=== PATIENT | male | born 1990 | race Caucasian/White ===

== ENCOUNTER 2018-03-19 00:01 | Emergency (ER) | payer SELFPAY ==
[~2018-03-19] VITALS: Ht 182.9 cm; Wt 93.0 kg
[2018-03-19 00:54] LABS: Basophils # (auto) 0.1 uL; Basophils % (auto) 0.6 % (0.0-2.0); Eosinophils # (auto) 0.3 uL; Eosinophils % (auto) 2.4 % (0.0-7.0); Hematocrit 40.2 % (41.0-53.0); Hemoglobin 13.6 g/dL (13.5-17.5); Lymphocytes # (auto) 1.7 uL; Lymphocytes % (auto) 15.5 % (10.0-50.0); Mean Corpuscular Hemoglobin 32.6 pg (28.0-32.0); Mean Corpuscular Hgb Conc. 33.9 g/dL (32.0-36.0); Mean Corpuscular Volume 96.3 fL (80.0-100.0); Monocytes % (auto) 9.6 % (0.0-12.0); Neutrophils # (auto) 7.8 uL; Neutrophils % (auto) 71.9 % (37.0-80.0); Platelet Count (auto) 239 10^3/uL (140-450); Red Blood Cells 4.17 10^6/uL (4.5-5.90); Red Cell Distribution Width 12.5 % (11.8-14.3); White Blood Cell 10.8 10^3/uL (4.4-10.8)
[2018-03-19 01:14] LABS: BUN/Creatinine Ratio 19.8; Calcium 8.6 mg/dL (8.5-10.1); Potassium 3.9 mmol/L (3.5-5.1)
[2018-03-19 06:10] VITALS: BP 131/75
== END 2018-03-19 07:37 | disposition home or self-care (01) ==
LOC: ER 00:04
DX: N50.3 Cyst of epididymis (principal); N43.3 Hydrocele, unspecified
CPT/HCPCS: 36415; 76870; 80048; 85025

== ENCOUNTER 2024-10-08 09:27 | Inpatient (IN) | payer OTHER, MEDICAID ==
[~2024-10-08] VITALS: Ht 182.9 cm; Wt 97.7 kg
[2024-10-08] MEDS ORDERED: MORPHINE SULFATE INJ 2 MG/ml SYRG IV ONE (10:30)
[2024-10-08] MEDS: KETOROLAC TROMETH 30 MG/ML 1ML VIAL IV ONE (10:47)
[2024-10-08] MEDS: SODIUM CHLORIDE 0.9% 1,000 ML IV ONE (10:47)
[2024-10-08] MEDS: ONDANSETRON HCL 4 MG/2 ML VIAL IV ONE (10:47)
[2024-10-08 11:10] LABS: Basophils # (auto) 0 10 ^3/uL (0-0.2); Hemoglobin 15.5 g/dL (13.5-17.5); Mean Corpuscular Hgb Conc. 34.2 g/dL (32.0-36.0); Monocytes # (auto) 0.6 10 ^3/uL (0-1.3)
[2024-10-08 11:12] LABS: Basophils % (auto) 0.3 % (0.0-2.0); Eosinophils # (auto) 0.1 10 ^3/uL (0-0.8); Eosinophils % (auto) 1.5 % (0.0-7.0); Hematocrit 45.2 % (41.0-53.0); Lymphocytes % (auto) 10.5 % (10.0-50.0); Mean Corpuscular Hemoglobin 34.1 pg (28.0-32.0); Mean Corpuscular Volume 99.6 fL (80.0-100.0); Monocytes % (auto) 6.1 % (0.0-12.0); Neutrophils # (auto) 7.5 10 ^3/uL (1.6-8.6); Neutrophils % (auto) 81.6 % (37.0-80.0); Platelet Count (auto) 239 10^3/uL (140-450); Red Blood Cells 4.54 10^6/uL (4.5-5.90); Red Cell Distribution Width 14.6 % (11.8-14.3); White Blood Cell 9.2 10^3/uL (4.4-10.8)
[2024-10-08 11:27] LABS: Alanine Aminotransferase 12 U/L (7-40); Albumin 4.3 g/dL (3.2-4.8); Alkaline Phosphatase 88 U/L (46-116); Anion Gap 5 (5-15); Aspartate Aminotransferase 21 U/L (13-40); BUN/Creatinine Ratio 12.8 (10.0-20.0); Bilirubin, Total 0.7 mg/dL (0.2-1.0); Blood Urea Nitrogen 10 mg/dL (9-23); Calcium 9.6 mg/dL (8.7-10.4); Carbon Dioxide 27 mmol/L (20-31); Glucose 97 mg/dL (74-106); Potassium 3.6 mmol/L (3.5-5.1); Sodium 139 mmol/L (136-145); Total Protein 6.6 g/dL (5.7-8.2)
[2024-10-08 11:32] LABS: Chloride 107 mmol/L (98-107); Lipase 492 U/L (12-53)
--- NOTE | 2024-10-08 11:45 | ED.PDOC ---
GI ASSESSMENT HPI Comments 34y M who presents to the ED for chief complaint of abdominal pain. Pt states he has been having epigastric abdominal pain since 0200 this AM. Pt states he has been drinking heavily for the past 1 days and states he drinks 4-5x per week. Pt states the pain is sharp in nature, intermittent, with associated exacerbating factor of pain after drinking and no relieving factors. Pt has associated nausea, vomiting and diarrhea but denies any other symptoms. Pt states he has history of pancreatis due to his heavy drinking in the past and thinks its the same today. Pt has stable vitals in the ED. Pt otherwise denies any other symptoms at this time. Chief Complaint: Abdominal Pain Time Seen by MD: 11:41 Primary Care Provider: NONE Reviewed Notes: Nurses Notes Allergies: Coded Allergies: NO KNOWN ALLERGIES (Unverified , 03/19/18) Information Source: Patient Mode of Arrival: Ambulatory Brought in by: self Past Medical History PAST MEDICAL HISTORY: Denies Surgical History: Denies all surgeries Family History Family History: Unknown Social History Smoker: Non-Smoker Alcohol: Heavy Drugs: Denies Drug Use Lives In: Home Gastrointestinal: reports: abdominal pain, diarrhea, nausea, vomiting Physical Exam General Appearance: No Apparent Distress, Normal HEENT: Normal ENT Inspection, Pharynx Normal, TMs Normal Neck: Full Range of Motion, Non-Tender, Normal, Normal Inspection Respiratory: Chest Non-Tender, Lungs Clear, No Accessory Muscle Use, No Respiratory Distress, Normal Breath Sounds Cardiovascular: No Edema, No JVD, No Murmur, No Gallop, Normal Peripheral Pulses, Regular Rate/Rhythm Breast Exam: Deferred Gastrointestinal: Epigastric (tender to palpation, otherwise no rebound or guarding noted) Genitalia: Deferred Pelvic: Deferred Rectal: Deferred Extremities: No calf tenderness, Normal capillary refill, Normal inspection, Normal range of motion, Non-tender, No pedal edema Musculoskeletal : Apperance: Normal Neurologic: Alert, bus analyst II-XII nml as Tested, No Motor Deficits, Normal Affect, Normal Mood, No Sensory Deficits Cerebellar Function: Normal Reflexes: Normal Skin: Dry, Normal Color, Warm Lymphatic: No Adenopathy Was a procedure done? Was a procedure done?: No GI differential Dx Differential Diagnosis: Bowel Obstruction, Cholangitis, Cholecystitis, Constipation, Diverticular disease, Esophageal rupture, Esophagitis, Gastritis/PUD, Gastroenteritis, GI hemorrhage, Hernia, Hepatitis, Inflammatory BD, Ischemic Bowel, Pancreatitis, Urolithiasis, Dehydration, Diabetes/ DKA, Electrolyte Imbalance, Food Poisoning, Bacterial, Viral, Hypovolemia, Impaction, Malnutrition, Renal Failure, Ischemic Bowel, Mass, Kidney Stone, Other (pancreatic necrosis, pancreatic cyst/pseudocyst, abscess) X-Ray, Labs, Meds, VS Vital Signs Date Time Temp Pulse Resp B/P (MAP) Pulse Ox O2 Delivery O2 Flow Rate FiO2 10/08/24 12:51 66 18 100 Room Air 10/08/24 12:51 66 18 148/72 (97) 100 10/08/24 12:51 66 18 148/72 10/08/24 12:30 60 18 144/76 (98) 98 10/08/24 12:24 60 18 144/76 10/08/24 10:54 Room Air* 0 21 10/08/24 10:54 98.9 68 18 152/95 (114) 98 98.9 10/08/24 09:45 97.9 74 17 137/85 (102) 97 Lab Test 10/08/24 10:54 Range/Units White Blood Count 9.2 4.4-10.8 10^3/uL Red Blood Count 4.54 4.5-5.90 10^6/uL Hemoglobin 15.5 13.5-17.5 g/dL Hematocrit 45.2 41.0-53.0 % Mean Corpuscular Volume 99.6 80.0-100.0 fL Mean Corpuscular Hemoglobin 34.1 H 28.0-32.0 pg Mean Corpuscular Hemoglobin Concent 34.2 32.0-36.0 g/dL Red Cell Distribution Width 14.6 H 11.8-14.3 % Platelet Count 239 140-450 10^3/uL Mean Platelet Volume 7.6 6.9-10.8 fL Neutrophils (%) (Auto) 81.6 H 37.0-80.0 % Lymphocytes (%) (Auto) 10.5 10.0-50.0 % Monocytes (%) (Auto) 6.1 0.0-12.0 % Eosinophils (%) (Auto) 1.5 0.0-7.0 % Basophils (%) (Auto) 0.3 0.0-2.0 % Neutrophils # (Auto) 7.5 1.6-8.6 10 ^3/uL Lymphocytes # (Auto) 1.0 0.4-5.4 10 ^3/uL Monocytes # (Auto) 0.6 0-1.3 10 ^3/uL Eosinophils # (Auto) 0.1 0-0.8 10 ^3/uL Basophils # (Auto) 0 0-0.2 10 ^3/uL Nucleated Red Blood Cells 0.0 % Sodium Level 139 136-145 mmol/L Potassium Level 3.6 3.5-5.1 mmol/L Chloride Level 107 98-107 mmol/L Carbon Dioxide Level 27 20-31 mmol/L Anion Gap 5 5-15 Blood Urea Nitrogen 10 9-23 mg/dL Creatinine 0.78 0.700-1.30 mg/dL Glomerular Filtration Rate Calc 121 >90 mL/min BUN/Creatinine Ratio 12.8 10.0-20.0 Serum Glucose 97 74-106 mg/dL Calcium Level 9.6 8.7-10.4 mg/dL Total Bilirubin 0.7 0.2-1.0 mg/dL Aspartate Amino Transferase (AST) 21 13-40 U/L Alanine Aminotransferase (ALT) 12 7-40 U/L Alkaline Phosphatase 88 46-116 U/L Total Protein 6.6 5.7-8.2 g/dL Albumin 4.3 3.2-4.8 g/dL Lipase 492 H 12-53 U/L Current Medications Medications (Trade) Dose Ordered Sig/Prakash Route Start Time Stop Time Status Last Admin Sodium Chloride 1,000 ml @ 1,000 mls/hr Q1H ONCE IV 10/08/24 10:30 10/08/24 11:29 DC 10/08/24 10:47 Ondansetron HCl (Zofran) 4 mg ONCE ONCE IV 10/08/24 10:30 10/08/24 10:31 DC 10/08/24 10:47 Ketorolac Tromethamine (Toradol Injection) 15 mg ONCE ONCE IV 10/08/24 10:45 10/08/24 10:46 DC 10/08/24 10:47 Morphine Sulfate 2 mg ONCE ONCE IV 10/08/24 12:15 10/08/24 12:16 DC 10/08/24 12:24 Time of 1ST Reevaluation: 12:10 Reevaluation 1ST: Unchanged Time of 2ND Reevaluation: 15:08 Reevaluation 2ND: Unchanged Patient Education/Counseling: Diagnosis, Treatment Family Education/Counseling: No Family Present Additional Information - I reviewed the following notes from patient's past medical encounters:2 prior ER visits - The following tests were ordered, and results were reviewed by me: (Labs, X- Ray, EKG): CBC, CMP, lipase - Additional information was gathered from interviewing the following independent Historian: (Family, Other Providers, EMT) - I reviewed and agreed with the following test results read by other provider: ( CT) - I discussed treatments and results with medical personnel and: (consultants, family): Dr Ovalle from [facility], who authorized for admission here #[id number] pt continues to have fontaine. his CT shows significant pancreatic changes consistent with his pain. he will be admitted to have pain control and kept NPO Departure 1 Departure Time of Disposition: 15:10 Impression: Primary Impression: Acute pancreatitis Qualified Codes: K85.20 - Alcohol induced acute pancreatitis without necrosis or infection Disposition: 09 ADMITTED INPATIENT Admit to: Med Surg Condition: Stable Discharged With: Self Critical Care Note Critical Care Time?: Yes (45 min-critical care time only) Critical care comment: due to concerns for patient's condition deterioration, the care required my highest attention and readiness to intervene. i spoke to the family, patient, reviewed any records, ordered the appropriate tests and treatments, reviewed the results, response and communicated with medical personnel, formulated a plan of care. critical care time does not include any procedures Stability Stability form required: No Heart Score Heart Score: Heart Score Response (Comments) Value History N/A 0 EKG N/A 0 Age N/A 0 Risk Factors N/A 0 Troponin N/A 0 Total 0 I personally scribed for WILLIAM GUALLPA MD ([email or web address]) on 10/08/24 at 11:45. Electronically submitted by Marie Darby ([email or web address]). WILLIAM GUALLPA MD Oct 08, 2024 11:45
[2024-10-08] MEDS: MORPHINE SULFATE INJ 2 MG/ml SYRG IV ONE ×2 (12:24→19:21)
--- NOTE | 2024-10-08 13:13 | DVH ---
CT CT AB PEL WO CON-NO ORAL OR IV INDICATION: r/o pancreatic abscess EXAM DATE: 10/08/2024 12:48 PM COMPARISON: None RADIATION DOSE: CTDIvol: 17.73 mGy, DLP: 941.52 mGy*cm PROCEDURE: Helical CT images were obtained of the abdomen and pelvis without IV contrast Sagittal an d coronal reconstructions are provided. ORAL CONTRAST: None. ADDITIONAL IMAGES / REFORMATS: None All CT scans at this medical facility are performed using dose modulation techniques as appropriate t o a performed exam including the following: Automated exposure control was utilized; adjustment of th e MA and/or KV according to patient size; and use of iterative reconstruction technique. FINDINGS: LUNG BASE: Normal. LIVER: Normal. GALLBLADDER AND BILIARY TREE: No calcified gallstones. Normal caliber wall. No intra- or extrahepatic biliary ductal dilation. PANCREAS: Prominent peripancreatic edema/fat stranding, can be seen with acute pancreatitis. SPLEEN: Normal. BOWEL: Mild wall thickening and periduodenal edema/ fat stranding. Normal appendix. ADRENALS: Normal. KIDNEYS AND URETER: Normal. BLADDER: Normal. REPRODUCTIVE ORGANS: Normal. LYMPH NODES:No lymphadenopathy. PERITONEUM: No ascites or free air. No other fluid collection. VESSELS: Scattered atherosclerotic calcifications are noted. RETROPERITONEUM: Normal. ABDOMINAL WALL: Normal. BONES: Scattered osseous degenerative changes are noted. IMPRESSION: Prominent peripancreatic edema/fat stranding, can be seen with acute pancreatitis. However, no focal fluid collection is seen. Mild wall thickening and periduodenal edema/ fat stranding can be seen with duodenitis.
[2024-10-08] MEDS: fentaNYL CITRATE 100 MCG/2 ML VL IV ONE (16:07)
[2024-10-08 19:15] VITALS: BP 143/89; PULSE 56; RESP 20; TEMP 99.4; O2SAT 100
[2024-10-08 21:00] VITALS: BP 150/72; PULSE 67; RESP 20; TEMP 98.2; O2SAT 99
[2024-10-08] MEDS ORDERED: ONDANSETRON HCL 4 MG/2 ML VIAL IV PRN (21:30)
[2024-10-08] MEDS ORDERED: LORazepam 2MG/ML-1ML VIAL IV PRN ×2 (21:30)
--- NOTE | 2024-10-08 22:23 | DVH ---
INDICATION: Acute pancreatitis r/o cholelithiasis TECHNIQUE: Multiple real-time sonographic images of the abdomen were obtained. COMPARISON: US GALLBLADDER on DOS: 06/24/24 FINDINGS: Increased echogenicity of the hepatic parenchyma suggesting steatosis. The liver measures 18.81 cm. No intrahepatic biliary ductal dilatation is noted. The gallbladder wall measures 0.23 cm and is unremarkable. No gallstones or sludge is seen. The co mmon duct measures 0.57 cm and is unremarkable. No pericholecystic fluid is noted. Negative ultrasou nd Su's sign The right kidney measures 10.4 cm. No hydronephrosis. The pancreas is not well visualized due to obscuration from bowel gas. IMPRESSION: 1. Hepatomegaly with findings suggesting steatosis. 2. Negative gallbladder
[2024-10-08 22:59] LABS: Basophils # (auto) 0 10 ^3/uL (0-0.2); Eosinophils # (auto) 0.1 10 ^3/uL (0-0.8); Hemoglobin 14.4 g/dL (13.5-17.5); Lymphocytes # (auto) 1.2 10 ^3/uL (0.4-5.4); Neutrophils # (auto) 7.1 10 ^3/uL (1.6-8.6); Nucleated Red Blood Cells % 0.2 %; Red Cell Distribution Width 14.7 % (11.8-14.3)
[2024-10-08 23:00] VITALS: BP 141/82; PULSE 60; RESP 20; TEMP 99.5; O2SAT 100
[2024-10-08 23:03] LABS: Basophils % (auto) 0.1 % (0.0-2.0); Eosinophils % (auto) 1.2 % (0.0-7.0); Hematocrit 42.3 % (41.0-53.0); Lymphocytes % (auto) 13.9 % (10.0-50.0); Mean Corpuscular Hemoglobin 34.4 pg (28.0-32.0); Mean Corpuscular Hgb Conc. 34.1 g/dL (32.0-36.0); Monocytes # (auto) 0.5 10 ^3/uL (0-1.3); Monocytes % (auto) 5.5 % (0.0-12.0); Neutrophils % (auto) 79.3 % (37.0-80.0); Platelet Count (auto) 219 10^3/uL (140-450); Red Blood Cells 4.19 10^6/uL (4.5-5.90)
[2024-10-08 23:18] LABS: Alanine Aminotransferase 12 U/L (7-40); Albumin 4.1 g/dL (3.2-4.8); Alkaline Phosphatase 81 U/L (46-116); Anion Gap 9 (5-15); Aspartate Aminotransferase 18 U/L (13-40); BUN/Creatinine Ratio 11.1 (10.0-20.0); Bilirubin, Total 0.7 mg/dL (0.2-1.0); Calcium 9.4 mg/dL (8.7-10.4); Carbon Dioxide 25 mmol/L (20-31); Chloride 105 mmol/L (98-107); Cholesterol 141 mg/dL (< 200); Glucose 94 mg/dL (74-106); LDL Cholesterol 52 mg/dL (< 100); Potassium 3.5 mmol/L (3.5-5.1); Sodium 139 mmol/L (136-145); Total Protein 6.5 g/dL (5.7-8.2); Triglycerides 60 mg/dL (< 150)
[2024-10-08 23:22] LABS: Blood Urea Nitrogen 8 mg/dL (9-23); HDL Cholesterol 75 mg/dL (40-59)
[2024-10-08] MEDS: LACTATED RINGER'S 1,000 ML IV ONE (23:25)
[2024-10-08 23:59] LABS: Lipase 309 U/L (12-53)
[2024-10-09] VITALS (10 sets, daily range): BP systolic 107–144; BP diastolic 64–84; PULSE 56–73; RESP 18–20; TEMP 97.7–99.5; O2SAT 96–100
--- NOTE | 2024-10-09 00:49 | DVHHPRES ---
History of Present Illness Resident Creating Document: KAMIFEROZJOSESITO RESIDENT History of Present Illness Patient is a 34-year-old male with no significant past medical history came to the ED with a chief acute onset abdominal pain insert early in the morning today. Patient reports sudden onset epigastric abdominal pain which started around 3:00 a.m. and woke him up from sleep. Patient reports severe intensity pain 9/10 on intensity, after a few hours started radiating to the back associated with multiple episodes of vomiting which was mostly clear frothy liquid, no blood and he was not able to keep anything down. Patient reports in the last 3-4 days he has been having diarrhea 4-5 episodes of watery stools per day no blood in stool. Patient had a recent episode of acute pancreatitis about 3 months ago and reports that the pain is similar to the one he experienced that time. Past medical history: Acute pancreatitis 3 months ago Past surgical history: none Social history: Patient drinks about 5-10 drinks of 2 oz whiskey every day, is on opioid remission and methadone 85 mg every day, smokes a pack of cigarettes every day with 20 pack year smoking history, occasional marijuana use, denies other illicit drug use. Home medication: Methadone 85 mg q.d. Review of Systems Review of Systems Patient seen and examined at bedside Reports of abdominal pain moderate in intensity radiating to the back Denies nausea, vomiting, diarrhea Denies chest pain, shortness of breath, headache. Assessment of CIWA < 8 Allergies: Coded Allergies: NO KNOWN ALLERGIES (Unverified , 03/19/18) Medications Current Medications Medications Dose Ordered Sig/Prakash Route Start Time Stop Time Status Last Admin Dose Admin Hydromorphone HCl 0.5 mg Q4HPRN PRN IV 10/08/24 21:30 Morphine Sulfate 2 mg Q4HPRN PRN IV 10/08/24 21:30 Ondansetron HCl 4 mg Q4HPRN PRN IV 10/08/24 21:30 Lorazepam 1 mg Q5MINP PRN IV 10/08/24 21:30 Lorazepam 1 mg Q4HP PRN IV 10/08/24 21:30 Exam Vital Signs Vital Signs Date Time Temp Pulse Resp B/P (MAP) Pulse Ox O2 Delivery O2 Flow Rate FiO2 10/08/24 19:51 67 20 150/72 10/08/24 19:15 99.4 100 99.4 10/08/24 12:51 Room Air 10/08/24 10:54 0 21 Exam Physical Examination Constitutional: Patient was alert and oriented to time, place and person and appears to be in mild distress because of the abdominal pain. Gen - no pallor, no icterus, no cyanosis, no clubbing, no LAD, no edema. Skin - Patients skin is warm and dry. HEENT - normocephalic, atraumatic, dry mucous membranes. Neck - full ROM, no LAD, no JVD. Pulmonary - B/L vesicular breath sounds. no crackles , no wheezing cardiovascular - normal S1,S2 heard. no murmurs heard. peripheral pulses radial 2+, pedal 2+. GI - soft abdomen with tenderness to palpation in the epigastrium, RUQ and LUQ. no hepatospleenomegaly. Bowel sounds normoactive Neurological - Bilateral upper extremity strength 5/5, bilateral lower extremity strength 5/5, no facial droop, normal speech, no tremor, no sensory deficiets. Labs/Xrays Labs Test 10/08/24 22:32 Range/Units White Blood Count 9.0 4.4-10.8 10^3/uL Red Blood Count 4.19 L 4.5-5.90 10^6/uL Hemoglobin 14.4 13.5-17.5 g/dL Hematocrit 42.3 41.0-53.0 % Mean Corpuscular Volume 101.0 H 80.0-100.0 fL Mean Corpuscular Hemoglobin 34.4 H 28.0-32.0 pg Mean Corpuscular Hemoglobin Concent 34.1 32.0-36.0 g/dL Red Cell Distribution Width 14.7 H 11.8-14.3 % Platelet Count 219 140-450 10^3/uL Mean Platelet Volume 7.9 6.9-10.8 fL Neutrophils (%) (Auto) 79.3 37.0-80.0 % Lymphocytes (%) (Auto) 13.9 10.0-50.0 % Monocytes (%) (Auto) 5.5 0.0-12.0 % Eosinophils (%) (Auto) 1.2 0.0-7.0 % Basophils (%) (Auto) 0.1 0.0-2.0 % Neutrophils # (Auto) 7.1 1.6-8.6 10 ^3/uL Lymphocytes # (Auto) 1.2 0.4-5.4 10 ^3/uL Monocytes # (Auto) 0.5 0-1.3 10 ^3/uL Eosinophils # (Auto) 0.1 0-0.8 10 ^3/uL Basophils # (Auto) 0 0-0.2 10 ^3/uL Nucleated Red Blood Cells 0.2 % Sodium Level 139 136-145 mmol/L Potassium Level 3.5 3.5-5.1 mmol/L Chloride Level 105 98-107 mmol/L Carbon Dioxide Level 25 20-31 mmol/L Anion Gap 9 5-15 Blood Urea Nitrogen 8 L 9-23 mg/dL Creatinine 0.72 0.700-1.30 mg/dL Glomerular Filtration Rate Calc 124 >90 mL/min BUN/Creatinine Ratio 11.1 10.0-20.0 Serum Glucose 94 74-106 mg/dL Calcium Level 9.4 8.7-10.4 mg/dL Total Bilirubin 0.7 0.2-1.0 mg/dL Aspartate Amino Transferase (AST) 18 13-40 U/L Alanine Aminotransferase (ALT) 12 7-40 U/L Alkaline Phosphatase 81 46-116 U/L Total Protein 6.5 5.7-8.2 g/dL Albumin 4.1 3.2-4.8 g/dL Triglycerides Level 60 < 150 mg/dL Cholesterol Level 141 < 200 mg/dL LDL Cholesterol 52 < 100 mg/dL HDL Cholesterol 75 H 40-59 mg/dL Lipase 309 H 12-53 U/L Assessment/Plan Assessment/Plan Assessment # Acute abdominal pain # Acute Pancreatitis # Acute Duodenitis # Hepatic steatosis # H/o Opioid use on methadone # Alcohol dependence - lipase elevated 492-->309 - CT abdomen pelvis without contrast showed 1.Prominent peripancreatic edema/fat stranding, can be seen with acute pancreatitis. However, no focal fluid collection is seen. 2.Mild wall thickening and periduodenal edema/ fat stranding can be seen with duodenitis. - Gallbladder ultrasound showed 1. Hepatomegaly with findings suggesting steatosis. 2. Negative gallbladder - triglycerides WNL Plan - patient NPO - given NS bolus 1 L - on LR at 150 mL/hour - Protonix 40 mg IV daily - Dilaudid for severe pain and morphine for moderate pain IV - lorazepam 1 mg IV for anxiety - Zofran IV for nausea - monitor H&H, BMP - monitor for alcohol withdrawal - urinalysis and urine drug screen pending Goals of care discussed with the patient for over 25 minutes. Full code Plan discussed with Dr. Wright Plan discussed with: Patient My Orders Orders - TIAGO MCCLURE Procedure Category Date Status Time Npo (Nothing By DIET 10/09/24 Transmitted Mouth) Diet Breakfast Admit ADMIT 10/08/24 Transmitted 21:22 Urinalysis LAB 10/08/24 Logged 21:28 Drug Screen LAB 10/08/24 Logged 21:28 Covid19 Antigen Kat LAB 10/08/24 Logged Rapid Influenza A&B LAB 10/08/24 Logged 21:28 Lactated Ringer's PHA 10/08/24 In Process 21:30 Strict I & O USMAN 10/08/24 In Process 21:28 Accucheck BD 10/08/24 Transmitted 22:00 Accucheck BD 10/09/24 Transmitted 02:00 Accucheck BD 10/09/24 Transmitted 06:00 Accucheck BD 10/09/24 Transmitted 10:00 Hydromorphone Hcl Inj PHA 10/08/24 In Process (Dilaudid Innjecti 21:30 Morphine Sulfate PHA 10/08/24 In Process Injection 21:30 Ondansetron Hcl PHA 10/08/24 In Process (Zofran) 21:30 Lorazepam 2mg/Ml Inj PHA 10/08/24 In Process (Ativan Inj) 21:30 Lorazepam 2mg/Ml Inj PHA 10/08/24 In Process (Ativan Inj) 21:30 Gallbladder US 10/08/24 Resulted 21:28 Code Status CODE 10/08/24 Transmitted 21:50 Date of Service: Oct 08, 2024 Billing Provider: CODY WRIGHT MD Common Visit Codes: [id number] INP/OBS CARE (HIGH) TIAGO MCCLURE RESIDENT Oct 09, 2024 00:49 COYD WRIGHT MD Oct 09, 2024 10:41
[2024-10-09] MEDS: PANTOPRAZOLE 40 MG/10 ML VIAL INJ IV ONE (00:55)
[2024-10-09] MEDS: HYDROMORPHONE HCL 1 MG/ML INJ IV PRN (00:57)
[2024-10-09 01:26] LABS: Rapid Influenza A Negative (Negative); Rapid Influenza B Negative (Negative)
[2024-10-09 01:31] LABS: COVID19 ANTIGEN SOFIA FIA NEGATIVE (NEGATIVE)
[2024-10-09] MEDS ORDERED: METH-1214 PO (02:45)
[2024-10-09] MEDS: LACTATED RINGER'S 1,000 ML IV SCH (06:33)
[2024-10-09 09:11] LABS: Urine Bacteria None Seen /hpf (None Seen)
[2024-10-09 09:32] LABS: Cannabinoid Screen, Urine Pos (NEGATIVE); Opiate Scree,Urine Neg (NEGATIVE)
[2024-10-09 09:40] LABS: Chloride 107 mmol/L (98-107); Potassium 3.6 mmol/L (3.5-5.1); Sodium 139 mmol/L (136-145)
[2024-10-09 09:41] LABS: Anion Gap 5 (5-15); Calcium 9.1 mg/dL (8.7-10.4); Carbon Dioxide 27 mmol/L (20-31)
[2024-10-09 09:42] LABS: Amphetamine Screen, Urine Neg (NEGATIVE); Barbiturate Scree,Urine Neg (NEGATIVE); Benzodiazephine Screen, Urine Neg (NEGATIVE); Cocaine Screen, Urine Neg (NEGATIVE); Phencyclidine Screen, Urine Neg (NEGATIVE)
[2024-10-09 09:46] LABS: BUN/Creatinine Ratio 11.1 (10.0-20.0); Glucose 82 mg/dL (74-106)
[2024-10-09 09:53] LABS: Blood Urea Nitrogen 7 mg/dL (9-23)
[2024-10-09 09:57] LABS: Basophils # (auto) 0 10 ^3/uL (0-0.2); Basophils % (auto) 0.1 % (0.0-2.0); Eosinophils # (auto) 0.2 10 ^3/uL (0-0.8); Eosinophils % (auto) 2.9 % (0.0-7.0); Hematocrit 41.6 % (41.0-53.0); Hemoglobin 14.1 g/dL (13.5-17.5); Lymphocytes # (auto) 1.4 10 ^3/uL (0.4-5.4); Lymphocytes % (auto) 20.9 % (10.0-50.0); Mean Corpuscular Hgb Conc. 33.9 g/dL (32.0-36.0); Mean Corpuscular Volume 100.3 fL (80.0-100.0); Monocytes # (auto) 0.4 10 ^3/uL (0-1.3); Monocytes % (auto) 6.2 % (0.0-12.0); Neutrophils # (auto) 4.8 10 ^3/uL (1.6-8.6); Neutrophils % (auto) 69.9 % (37.0-80.0); Nucleated Red Blood Cells % 0.1 %; Platelet Count (auto) 193 10^3/uL (140-450); Red Blood Cells 4.15 10^6/uL (4.5-5.90); Red Cell Distribution Width 14.6 % (11.8-14.3); White Blood Cell 6.9 10^3/uL (4.4-10.8)
[2024-10-09] MEDS: PANTOPRAZOLE 40 MG/10 ML VIAL INJ IV SCH (10:00)
[2024-10-09 10:25] LABS: Urine Blood Negative /uL (Negative); Urine Clarity Clear (Clear); Urine Color Light-Yellow (Yellow); Urine Mucus FEW (None Seen); Urine Protein, UAD Negative (Negative); Urine Specific Gravity 1.016 (1.001-1.035); Urine Squamous Epithelial Cell None Seen /hpf (<5); Urine Urobilinogen Normal (Negative); Urine WBC 2 /hpf (0 - 3)
--- NOTE | 2024-10-09 10:57 | DVHPNRES ---
Progress Note Date Seen: Oct 09, 2024 Resident Creating Document: TRACY LOWRY RESIDENT Medical Necessity Reason Pt with a Central, PICC or Fol: No Subjective Review of Systems Patient is 31 years old male with past medical history of alcoholic hepatitis, chronic alcoholism came with a complaint of abdominal pain. As per patient patient started having abdominal pain 1 day before early in the morning around 3:00 a.m., epigastric pain, sharp, stabbing in nature, 10/10 in severity, radiating to the back, aggravated with movement or deep breathing, relieved with some pain medication. Patient reported drinking alcohol regularly, last alcohol was taken before patient came into the hospital. Patient also endorsed nausea and vomiting couple of times watery content, no blood. Reported he had pancreatitis three-month before. Further discussion patient also reported having motion last 4 5 days couple of times, watery content, no blood. Patient denied any chest pain, shortness of breath, dysuria, acute joint pain or swelling, change in vision. Initial lab workup revealed elevated lipase 442, triglycerides 60, LDL 52, HLD 75, negative for COVID-19 and flu.. UDS positive for fentanyl, cannabinoids. CT -Abdomen revealed- Prominent peripancreatic edema/fat stranding, can be seen with acute pancreatitis. However, no focal fluid collection is seen.Mild wall thickening and periduodenal edema/ fat stranding can be seen with duodenitis. Ultrasonogram revealed-1. Hepatomegaly with findings suggesting steatosis. Negative gallbladder. Past medical history: Acute pancreatitis 3 months ago Past surgical history: none Social history: Patient drinks about 5-10 drinks of 2 oz whiskey every day, is on opioid remission and methadone 85 mg every day, smokes a pack of cigarettes every day with 20 pack year smoking history, occasional marijuana use, denies other illicit drug use. Home medication: Methadone 85 mg q.d. Patient was seen today at the bedside. Cardiovascular- deny acute chest pain or shortness of breath or cough or palpitation Respiratory- denies cough or short of breath or wheezing Gastrointestinal- denies any rectal bleeding, Musculoskeletal-denies acute joint swelling or tenderness or redness Neurological- denies acute dysarthria, dysphagia, change in vision Psychiatry- denies depression or SI or HI Skin- denies acute rash or purpura Patient was seen today for clinical evaluation. Labs and chart reviewed. P atient reports ongoing epigastric pain, radiating to the back, 05/22, complained of nausea, vomiting. Unable to tolerate clear liquid diet. Temperature 99.5 early in the morning.CT -Abdomen revealed- Prominent peripancreatic edema/fat stranding, can be seen with acute pancreatitis. However, no focal fluid collection is seen.Mild wall thickening and periduodenal edema/ fat stranding can be seen with duodenitis. Ultrasonogram revealed-1. Hepatomegaly with findings suggesting steatosis Objective vital signs Vital Sign Date Time Temp Pulse Resp B/P (MAP) Pulse Ox O2 Delivery O2 Flow Rate FiO2 10/09/24 10:15 61 20 138/83 10/09/24 09:00 97.8 100 97.8 10/09/24 03:55 Room Air* 0 21 Total Intake and Output 10/08/24 10/08/24 10/09/24 15:00 23:00 07:00 Intake Total 1000 ml 950 ml Balance 1000 ml 950 ml medications Current Medications Medications Dose Ordered Sig/Prakash Route Start Time Stop Time Status Last Admin Dose Admin Hydromorphone HCl 0.5 mg Q4HPRN PRN IV 10/08/24 21:30 10/09/24 10:15 0.5 MG Morphine Sulfate 2 mg Q4HPRN PRN IV 10/08/24 21:30 Ondansetron HCl 4 mg Q4HPRN PRN IV 10/08/24 21:30 Lorazepam 1 mg Q5MINP PRN IV 10/08/24 21:30 Lorazepam 1 mg Q4HP PRN IV 10/08/24 21:30 Lactated Ringer's 1,000 ml @ 150 mls/hr Q6H40M IV 10/09/24 07:00 10/09/24 06:33 150 MLS/HR Patient Own Medication 85 DAILY PO 10/10/24 10:00 Pantoprazole Sodium 40 mg BID IV 10/09/24 09:00 10/09/24 10:14 40 MG Examination General examination- distress, complained of abdominal pain HEENT- PEERLA, no acute nasal discharge Cardiovascular- S1-S2 audible, rate and rhythm regular, no murmur Respiratory- CTAB, no wheeze or rhonchi Gastrointestinal- epigastric tenderness++, bowel sound+. Nondistended Musculoskeletal-no acute joint swelling or tenderness or redness# Lower extremity- no leg edema Neurological- cranial nerves intact, no acute dysarthria or dysphagia Psychiatry- denies depression or SI or HI Skin- no acute rash or purpura laboratory and microbiology Laboratory Tests 10/09/24 08:45 Test 10/09/24 08:45 Range/Units Serum Glucose 82 74-106 mg/dL Problem List/Assessment/Plan Problem List/Assessment/Plan # acute intractable abdominal pain due to acute alcoholic pancreatitis #acute alcoholic pancreatitis # intractable nausea and vomiting due to acute alcoholic pancreatitis and gastroenteritis # acute gastroenteritis # history of alcoholism # history of substance abuse # smoker Continue pantoprazole 40 mg IV b.i.d. Continue continue IV fluid as prescribed Continue pain medication as prescribed Continue other medication as prescribed Monitor vitals Patient with severe acute alcoholic pancreatitis intractable abdominal pain and nausea and vomiting. Unable to tolerate clear liquid diet Patient had fever temperature of 99.5. Patient is clinically unstable to be transferred at this moment Goals of care/advance care planning; FULL CODE; discussed with the patient >15 minutes PUD prophylaxis: Pantoprazole DVT prophylaxis: Plan discussed with Dr. Wright, nursing staff, patient Total time spent on patient evaluation, chart review, assessment and plan, discussion discussion >30 minutes Plan discussed with: Patient Plan discussed with: Patient, Other (RN) My Orders My Orders Orders - TRACY LOWRY Procedure Category Date Status Time Clear Liq Diet DIET 10/09/24 Transmitted Breakfast Pantoprazole PHA 10/09/24 In Process (Protonix) 09:00 Patients Own PHA 10/10/24 In Process Medication 10:00 Date of Service: Oct 09, 2024 Billing Provider: CODY WRIGHT MD Common Visit Codes: [id number] INP/OBS CARE(HIGH) TRACY LOWRY Oct 09, 2024 10:57 CODY WRIGHT MD Oct 10, 2024 10:21
[2024-10-09 11:40] LABS: Magnesium 1.9 mg/dL (1.6-2.6)
[2024-10-09 12:01] LABS: Blood Alcohol < 3.0 mg/dL (<10)
[2024-10-09] MEDS: MORPHINE SULFATE INJ 2 MG/ml SYRG IV PRN (16:13)
[2024-10-09] MEDS: FOLIC ACID 1 MG, MAGNESIUM SULF SDV 50% 8 MEQ, MULTIPLE VITAMIN 10 ML, THIAMINE INJ 100... INJ SCH (17:49)
[2024-10-09] MEDS ORDERED: FOLIC ACID 1 MG, MULTIPLE VITAMIN 10 ML, MAGNESIUM SULF SDV 50% 8 MEQ, THIAMINE INJ 100... INJ SCH (18:00)
[2024-10-10] VITALS (7 sets, daily range): BP systolic 121–146; BP diastolic 62–86; PULSE 62–75; RESP 17–19; TEMP 97.9–98.4; O2SAT 96–100
[2024-10-10 07:38] LABS: Alkaline Phosphatase 67 U/L (46-116); Anion Gap 8 (5-15); Aspartate Aminotransferase 25 U/L (13-40); Calcium 9.4 mg/dL (8.7-10.4); Carbon Dioxide 27 mmol/L (20-31); Chloride 104 mmol/L (98-107); Glucose 80 mg/dL (74-106); Potassium 3.7 mmol/L (3.5-5.1); Sodium 139 mmol/L (136-145); Total Protein 6.3 g/dL (5.7-8.2)
[2024-10-10 07:42] LABS: Alanine Aminotransferase < 9 U/L (7-40); BUN/Creatinine Ratio 7.7 (10.0-20.0); Bilirubin, Total 0.4 mg/dL (0.2-1.0); Blood Urea Nitrogen < 5 mg/dL (9-23)
[2024-10-10 08:05] LABS: Basophils # (auto) 0 10 ^3/uL (0-0.2); Basophils % (auto) 0.1 % (0.0-2.0); Eosinophils # (auto) 0.2 10 ^3/uL (0-0.8); Hemoglobin 14.5 g/dL (13.5-17.5); Monocytes # (auto) 0.4 10 ^3/uL (0-1.3); Nucleated Red Blood Cells % 0.1 %; Red Blood Cells 4.23 10^6/uL (4.5-5.90); Red Cell Distribution Width 14.7 % (11.8-14.3); White Blood Cell 6.2 10^3/uL (4.4-10.8)
[2024-10-10 08:08] LABS: Eosinophils % (auto) 3.5 % (0.0-7.0); Hematocrit 42.1 % (41.0-53.0); Lymphocytes # (auto) 1.3 10 ^3/uL (0.4-5.4); Lymphocytes % (auto) 21.2 % (10.0-50.0); Mean Corpuscular Hemoglobin 34.4 pg (28.0-32.0); Mean Corpuscular Hgb Conc. 34.6 g/dL (32.0-36.0); Mean Corpuscular Volume 99.5 fL (80.0-100.0); Monocytes % (auto) 6.4 % (0.0-12.0); Neutrophils # (auto) 4.3 10 ^3/uL (1.6-8.6); Neutrophils % (auto) 68.8 % (37.0-80.0); Platelet Count (auto) 205 10^3/uL (140-450)
[2024-10-10] MEDS: METHADONE PO SCH (09:38)
[2024-10-10] MEDS ORDERED: PANTOPRAZOLE 40 MG/10 ML VIAL INJ IV SCH (10:00)
[2024-10-10] MEDS: MAGNESIUM OXIDE 400 MG TAB PO ONE (14:21)
[2024-10-10] MEDS: FOLIC ACID 1 MG TAB PO ONE (14:21)
[2024-10-10] MEDS: THIAMINE HCL 100 MG TAB PO ONE (14:21)
[2024-10-10] MEDS: MULTIPLE VITAMIN TAB PO ONE (14:21)
--- NOTE | 2024-10-10 14:56 | DVHPNRES ---
Progress Note Date Seen: Oct 10, 2024 Resident Creating Document: ANDREZ RIVERA RESIDENT Medical Necessity Reason Pt with a Central, PICC or Fol: No Subjective Review of Systems Patient is 34 years old male with past medical history of alcoholic hepatitis, chronic alcoholism came with a complaint of abdominal pain. As per patient patient started having abdominal pain 1 day before early in the morning around 3:00 a.m., epigastric pain, sharp, stabbing in nature, 10/10 in severity, radiating to the back, aggravated with movement or deep breathing, relieved with some pain medication. Patient reported drinking alcohol regularly, last alcohol was taken before patient came into the hospital. Patient also endorsed nausea and vomiting couple of times watery content, no blood. Reported he had pancreatitis three-month before. Further discussion patient also reported having motion last 4 5 days couple of times, watery content, no blood. Patient denied any chest pain, shortness of breath, dysuria, acute joint pain or swelling, change in vision. Initial lab workup revealed elevated lipase 442, triglycerides 60, LDL 52, HLD 75, negative for COVID-19 and flu.. UDS positive for fentanyl, cannabinoids. CT -Abdomen revealed- Prominent peripancreatic edema/fat stranding, can be seen with acute pancreatitis. However, no focal fluid collection is seen.Mild wall thickening and periduodenal edema/ fat stranding can be seen with duodenitis. Ultrasonogram revealed-1. Hepatomegaly with findings suggesting steatosis. Negative gallbladder. Past medical history: Acute pancreatitis 3 months ago Past surgical history: none Social history: Patient drinks about 5-10 drinks of 2 oz whiskey every day, is on opioid remission and methadone 85 mg every day, smokes a pack of cigarettes every day with 20 pack year smoking history, occasional marijuana use, denies other illicit drug use. Home medication: Methadone 85 mg q.d. Patient seen and examined at bedside, patient is feeling better but still have mild abdominal pain, patient is tolerating clear diet, advanced diet to full liquid today Objective vital signs Vital Sign Date Time Temp Pulse Resp B/P (MAP) Pulse Ox O2 Delivery O2 Flow Rate FiO2 10/10/24 13:46 68 19 126/79 10/10/24 13:00 98.0 96 98.0 10/10/24 07:55 Room Air* 0 21 Total Intake and Output 12/10/09/24 10/10/24 15:00 23:00 07:00 Intake Total 1000 ml 1890 ml 1813.2 ml Output Total 1800 ml 1600 ml Balance 1000 ml 90 ml 213.2 ml medications Current Medications Medications Dose Ordered Sig/Prakash Route Start Time Stop Time Status Last Admin Dose Admin Morphine Sulfate 2 mg Q4HPRN PRN IV 10/08/24 21:30 10/10/24 13:46 2 MG Ondansetron HCl 4 mg Q4HPRN PRN IV 10/08/24 21:30 Lorazepam 1 mg Q5MINP PRN IV 10/08/24 21:30 Lorazepam 1 mg Q4HP PRN IV 10/08/24 21:30 Lactated Ringer's 1,000 ml @ 150 mls/hr Q6H40M IV 10/09/24 07:00 10/10/24 09:37 150 MLS/HR Patient Own Medication 85 DAILY PO 10/10/24 10:00 10/10/24 09:38 85 Pantoprazole Sodium 40 mg BID IV 10/09/24 09:00 10/10/24 09:38 40 MG Folic Acid 1 mg DAILY PO 10/11/24 10:00 Multivitamins 1 tab DAILY PO 10/11/24 10:00 Magnesium Oxide 400 mg DAILY PO 10/11/24 10:00 Thiamine HCl 100 mg DAILY PO 10/11/24 10:00 Examination Cardiovascular- deny acute chest pain or shortness of breath or cough or palpitation Respiratory- denies cough or short of breath or wheezing Gastrointestinal- denies any rectal bleeding, Musculoskeletal-denies acute joint swelling or tenderness or redness Neurological- denies acute dysarthria, dysphagia, change in vision Psychiatry- denies depression or SI or HI Skin- denies acute rash or purpura. laboratory and microbiology Laboratory Tests 10/10/24 06:10 Test 10/10/24 06:10 Range/Units Serum Glucose 80 74-106 mg/dL Problem List/Assessment/Plan Problem List/Assessment/Plan # acute intractable abdominal pain due to acute alcoholic pancreatitis #acute alcoholic pancreatitis # intractable nausea and vomiting due to acute alcoholic pancreatitis and gastroenteritis # acute gastroenteritis # history of alcoholism # history of substance abuse # smoker Continue pantoprazole 40 mg IV b.i.d. Continue continue IV fluid as prescribed Continue pain medication as prescribed Continue other medication as prescribed Monitor vitals advanced diet to full liquid today Patient with severe acute alcoholic pancreatitis intractable abdominal pain and nausea and vomiting. Possible discharge tomorrow. Goals of care/advance care planning; FULL CODE; discussed with the patient for 21 minutes Case discussed with Dr. Westfall Plan discussed with: Patient My Orders My Orders Orders - ANDREZ RIVERA Procedure Category Date Status Time Full Liq Diet DIET 10/10/24 Transmitted Lunch Date of Service: Oct 10, 2024 Billing Provider: EARLE WESTFALL MD Common Visit Codes: [id number] INP/OBS CARE(HIGH) ANDREZ RIVERA Oct 10, 2024 14:56 EARLE WESTFALL MD Oct 11, 2024 16:52
[2024-10-10] MEDS: HYDROmorphone HCL 2 MG/ML VL/or syr IV ONE (21:08)
[2024-10-11 05:00] VITALS: BP 142/85; PULSE 58; RESP 18; TEMP 98.1; O2SAT 100
[2024-10-11 08:09] LABS: Anion Gap 9 (5-15); Carbon Dioxide 28 mmol/L (20-31); Chloride 104 mmol/L (98-107); Potassium 3.6 mmol/L (3.5-5.1); Sodium 141 mmol/L (136-145)
[2024-10-11 08:11] LABS: Calcium 10.3 mg/dL (8.7-10.4)
[2024-10-11 08:15] LABS: Glucose 94 mg/dL (74-106)
[2024-10-11 08:16] LABS: BUN/Creatinine Ratio 6.7 (10.0-20.0); Magnesium 1.9 mg/dL (1.6-2.6)
[2024-10-11 08:18] LABS: Blood Urea Nitrogen 5 mg/dL (9-23)
[2024-10-11 09:00] VITALS: BP 133/85; PULSE 63; RESP 19; TEMP 98; O2SAT 98
[2024-10-11] MEDS: LACTULOSE 20Gm/30ML SOLN PO ONE (09:17)
[2024-10-11] MEDS: MULTIPLE VITAMIN TAB PO SCH (09:20)
[2024-10-11] MEDS: MAGNESIUM OXIDE 400 MG TAB PO SCH (09:20)
[2024-10-11] MEDS: FOLIC ACID 1 MG TAB PO SCH (09:20)
[2024-10-11] MEDS: THIAMINE HCL 100 MG TAB PO SCH (09:20)
[2024-10-11 10:54] LABS: Folate (Folic Acid) 12.29 ng/mL (>5.38)
[2024-10-11 13:00] VITALS: BP 135/83; PULSE 63; RESP 17; TEMP 98.2; O2SAT 97
[2024-10-11 16:46] VITALS: BP 117/80; PULSE 66; RESP 17; TEMP 98.3; O2SAT 98
--- NOTE | 2024-10-11 17:46 | DVHDSRES ---
Discharge Summary Date of Admission Resident Creating Document: ANDREZ RIVERA RESIDENT Oct 08, 2024 at 21:22 Date of Discharge: Oct 11, 2024 Labs/Diagnostic Data: Laboratory Results Test 10/11/24 07:29 10/10/24 06:10 10/09/24 08:45 10/09/24 00:35 Sodium Level 141 mmol/L (136-145) Potassium Level 3.6 mmol/L (3.5-5.1) Chloride Level 104 mmol/L (98-107) Carbon Dioxide Level 28 mmol/L (20-31) Anion Gap 9 (5-15) Blood Urea Nitrogen 5 mg/dL (9-23) Creatinine 0.75 mg/dL (0.700-1.30) Glomerular Filtration Rate Calc 122 mL/min (>90) BUN/Creatinine Ratio 6.7 (10.0-20.0) Serum Glucose 94 mg/dL (74-106) Calcium Level 10.3 mg/dL (8.7-10.4) Magnesium Level 1.9 mg/dL (1.6-2.6) White Blood Count 6.2 10^3/uL (4.4-10.8) Red Blood Count 4.23 10^6/uL (4.5-5.90) Hemoglobin 14.5 g/dL (13.5-17.5) Hematocrit 42.1 % (41.0-53.0) Mean Corpuscular Volume 99.5 fL (80.0-100.0) Mean Corpuscular Hemoglobin 34.4 pg (28.0-32.0) Mean Corpuscular Hemoglobin Concent 34.6 g/dL (32.0-36.0) Red Cell Distribution Width 14.7 % (11.8-14.3) Platelet Count 205 10^3/uL (140-450) Mean Platelet Volume 8.1 fL (6.9-10.8) Neutrophils (%) (Auto) 68.8 % (37.0-80.0) Lymphocytes (%) (Auto) 21.2 % (10.0-50.0) Monocytes (%) (Auto) 6.4 % (0.0-12.0) Eosinophils (%) (Auto) 3.5 % (0.0-7.0) Basophils (%) (Auto) 0.1 % (0.0-2.0) Neutrophils # (Auto) 4.3 10 ^3/uL (1.6-8.6) Lymphocytes # (Auto) 1.3 10 ^3/uL (0.4-5.4) Monocytes # (Auto) 0.4 10 ^3/uL (0-1.3) Eosinophils # (Auto) 0.2 10 ^3/uL (0-0.8) Basophils # (Auto) 0 10 ^3/uL (0-0.2) Nucleated Red Blood Cells 0.1 % Total Bilirubin 0.4 mg/dL (0.2-1.0) Aspartate Amino Transferase (AST) 25 U/L (13-40) Alanine Aminotransferase (ALT) < 9 U/L (7-40) Alkaline Phosphatase 67 U/L (46-116) Total Protein 6.3 g/dL (5.7-8.2) Albumin 4.0 g/dL (3.2-4.8) Lipase 118 U/L (12-53) Vitamin B12 Level 267 pg/mL (211-911) Folic Acid 12.29 ng/mL (>5.38) Thyroid Stimulating Hormone (TSH) 1.88 uIU/mL (0.55-4.78) Plasma/Serum Blood Alcohol < 3.0 mg/dL (<10) Influenza Type A Antigen Negative (Negative) Influenza Type B Antigen Negative (Negative) SARS-CoV-2 Antigen (Rapid) Negative (NEGATIVE) Test 10/08/24 22:32 10/08/24 21:28 Triglycerides Level 60 mg/dL (< 150) Cholesterol Level 141 mg/dL (< 200) LDL Cholesterol 52 mg/dL (< 100) HDL Cholesterol 75 mg/dL (40-59) Urine Color Light-yellow (Yellow) Urine Clarity Clear (Clear) Urine pH 6.0 (5.0-9.0) Urine Specific Deposit 1.016 (1.001-1.035) Urine Protein Negative (Negative) Urine Ketones 2+ (Negative) Urine Blood Negative /uL (Negative) Urine Nitrite Negative (Negative) Urine Bilirubin Negative (Negative) Urine Urobilinogen Normal mg/dL (Negative) Urine Leukocyte Esterase Negative /uL (Negative) Urine RBC 2 /hpf (0 - 3) Urine WBC 2 /hpf (0 - 3) Urine Squamous Epithelial Cells None seen /hpf (<5) Urine Bacteria None seen /hpf (None Seen) Urine Mucus Few (None Seen) Urine Glucose Normal mg/dL (Normal) Urine Opiates Screen Neg (NEGATIVE) Urine Fentanyl Screen Pos (NEGATIVE) Urine Barbiturates Screen Neg (NEGATIVE) Urine Phencyclidine Screen Neg (NEGATIVE) Urine Amphetamines Screen Neg (NEGATIVE) Urine Benzodiazepines Screen Neg (NEGATIVE) Urine Cocaine Screen Neg (NEGATIVE) Urine Cannabinoids Screen Pos (NEGATIVE) Other Laboratory Tests 10/11/24 07:29 10/10/24 06:10 Brief Hx & Hospital Course: Patient is 31 years old male with past medical history of alcoholic hepatitis, chronic alcoholism came with a complaint of abdominal pain. As per patient patient started having abdominal pain 1 day before early in the morning around 3:00 a.m., epigastric pain, sharp, stabbing in nature, 10/10 in severity, radiating to the back, aggravated with movement or deep breathing, relieved with some pain medication. Patient reported drinking alcohol regularly, last alcohol was taken before patient came into the hospital. Patient also endorsed nausea and vomiting couple of times watery content, no blood. Reported he had pancreatitis three-month before. Further discussion patient also reported having motion last 4 5 days couple of times, watery content, no blood. Patient denied any chest pain, shortness of breath, dysuria, acute joint pain or swelling, change in vision. Initial lab workup revealed elevated lipase 442, triglycerides 60, LDL 52, HLD 75, negative for COVID-19 and flu.. UDS positive for fentanyl, cannabinoids. CT -Abdomen revealed- Prominent peripancreatic edema/fat stranding, can be seen with acute pancreatitis. However, no focal fluid collection is seen.Mild wall thickening and periduodenal edema/ fat stranding can be seen with duodenitis. Ultrasonogram revealed-1. Hepatomegaly with findings suggesting steatosis. Negative gallbladder. During hospitalization patient's symptoms improved gradually. The patient was able to tolerate soft diet. Patient is clinically stable to be discharged to [facility]. Patient is to continue current medication as prescribed. Patient was hemodynamically stable on discharge. Past medical history: Acute pancreatitis 3 months ago Past surgical history: none Social history: Patient drinks about 5-10 drinks of 2 oz whiskey every day, is on opioid remission and methadone 85 mg every day, smokes a pack of cigarettes every day with 20 pack year smoking history, occasional marijuana use, denies other illicit drug use. Home medication: Methadone 85 mg q.d. Patient was seen today at the bedside. Cardiovascular- deny acute chest pain or shortness of breath or cough or palpitation Respiratory- denies cough or short of breath or wheezing Gastrointestinal- denies any rectal bleeding, Musculoskeletal-denies acute joint swelling or tenderness or redness Neurological- denies acute dysarthria, dysphagia, change in vision Psychiatry- denies depression or SI or HI Skin- denies acute rash or purpura General examination- awake, alert, oriented, conversant HEENT- PEERLA, no acute nasal discharge Cardiovascular- S1-S2 audible, rate and rhythm regular, no murmur Respiratory- CTAB, no wheeze or rhonchi Gastrointestinal- epigastric tenderness+, bowel sound+. Nondistended Musculoskeletal-no acute joint swelling or tenderness or redness Lower extremity- no leg edema Neurological- cranial nerves intact, no acute dysarthria or dysphagia Psychiatry- denies depression or SI or HI Skin- no acute rash or purpura Operations or Procedures DIAGNOSTIC IMAGING Diagnostic Imaging Report : [id number] Signed PATIENT: JAKY SCHNEIDER ACCT: [id number] UNIT: [id number] : 1990 LOC: ER ROOM / BED: / AGE / SEX: 34 / M ADM STATUS: REG ER SERVICE 1246 ORDERING PHYSICIAN: WILLIAM GUALLPA MD PROCEDURE(s): ABPL - CT AB PEL WO CON-NO ORAL OR IV REASON: r/o pancreatic abscess ORDER NUMBER(s): [id number], ACCESSION NUMBER(s): [id number] CT CT AB PEL WO CON-NO ORAL OR IV INDICATION: r/o pancreatic abscess EXAM DATE: 10/08/2024 12:48 PM COMPARISON: None RADIATION DOSE: CTDIvol: 17.73 mGy, DLP: 941.52 mGy*cm PROCEDURE: Helical CT images were obtained of the abdomen and pelvis without IV contrast Sagittal and coronal reconstructions are provided. ORAL CONTRAST: None. ADDITIONAL IMAGES / REFORMATS: None All CT scans at this medical facility are performed using dose modulation techniques as appropriate to a performed exam including the following: Automated exposure control was utilized; adjustment of the MA and/or KV according to patient size; and use of iterative reconstruction technique. FINDINGS: LUNG BASE: Normal. LIVER: Normal. GALLBLADDER AND BILIARY TREE: No calcified gallstones. Normal caliber wall. No intra- or extrahepatic biliary ductal dilation. PANCREAS: Prominent peripancreatic edema/fat stranding, can be seen with acute pancreatitis. SPLEEN: Normal. BOWEL: Mild wall thickening and periduodenal edema/ fat stranding. Normal appendix. ADRENALS: Normal. KIDNEYS AND URETER: Normal. BLADDER: Normal. REPRODUCTIVE ORGANS: Normal. LYMPH NODES:No lymphadenopathy. PERITONEUM: No ascites or free air. No other fluid collection. VESSELS: Scattered atherosclerotic calcifications are noted. RETROPERITONEUM: Normal. ABDOMINAL WALL: Normal. BONES: Scattered osseous degenerative changes are noted. IMPRESSION: Prominent peripancreatic edema/fat stranding, can be seen with acute pancreatitis. However, no focal fluid collection is seen. Mild wall thickening and periduodenal edema/ fat stranding can be seen with duodenitis. ATED BY: CHARLIE FERNANDEZ MD DICTATED DATE/TIME: 10/08/24 1310 SIGNED BY: CHARLIE FERNANDEZ MD SIGNED DATE/TIME: 10/08/24 131 CC: DIAGNOSTIC IMAGING Diagnostic Imaging Report : [id number] Signed [id number] UNIT: [id number] : 1990 LOC: OVERFLOW ROOM / BED: [address] [place] [address] AGE / SEX: 34 / M ADM STATUS: ADM IN SERVICE 27 ORDERING PHYSICIAN: TIAGO MCCLURE RESIDENT PROCEDURE(s): GBUS - GALLBLADDER REASON: Acute pancreatitis ? r/o cholelithiasis ORDER NUMBER(s): [id number], ACCESSION NUMBER(s): [id number] INDICATION: Acute pancreatitis r/o cholelithiasis TECHNIQUE: Multiple real-time sonographic images of the abdomen were obtained. COMPARISON: US GALLBLADDER on DOS: 06/24/24 FINDINGS: Increased echogenicity of the hepatic parenchyma suggesting steatosis. The liver measures 18.81 cm. No intrahepatic biliary ductal dilatation is noted. The gallbladder wall measures 0.23 cm and is unremarkable. No gallstones or sludge is seen. The common duct measures 0.57 cm and is unremarkable. No pericholecystic fluid is noted. Negative ultrasound Su's sign The right kidney measures 10.4 cm. No hydronephrosis. The pancreas is not well visualized due to obscuration from bowel gas. IMPRESSION: 1. Hepatomegaly with findings suggesting steatosis. 2. Negative gallbladder ATED BY: MARIE COELHO Jr., DO DICTATED DATE/TIME: 10/08/242220 SIGNED BY: MARIE COELHO Jr., SIGNED DATE/TIME: 10/08/242220 CC: Condition at Discharge: Stable Final Diagnosis/Problems List # acute intractable abdominal pain due to acute alcoholic pancreatitis #acute alcoholic pancreatitis # intractable nausea and vomiting due to acute alcoholic pancreatitis and gastroenteritis # acute gastroenteritis # history of alcoholism # history of substance abuse- UDS positive for fentanyl, cannabinoids. # smoker Discharge Disposition: Acute Care Facility Discharge Instruct/Medications Diet: Regular Diet comment: Soft diet Activity: No Restrictions, As Tolerated Medications: Continue current medication Discharge Statement: "Patient was advised to return to the ER or call 911 if any headaches, dizziness, shortness of breath, chest pain, abdominal pain, bleeding, fevers, or worsening of medical condition. Patient was counseled about treatment plan, medications, possible side effects, patientverbalized understanding. All questions were answered to the best of my ability. This discharge took greater then 30 minutes in planning, reviewing documentation, counseling the patient, and discussing with other team members." ASSESSMENT ASSESSMENT Assessment # acute intractable abdominal pain due to acute alcoholic pancreatitis #acute alcoholic pancreatitis # intractable nausea and vomiting due to acute alcoholic pancreatitis and gastroenteritis # acute gastroenteritis # history of alcoholism # history of substance abuse # smoker Date of Service: Oct 11, 2024 Billing Provider: HU LYONS MD Common Visit Codes: 12889-NNM/OBS DISCH DAY >30min TRACY LOWRY Oct 11, 2024 17:46 HU LYONS MD Oct 12, 2024 13:52
[2024-10-11 20:00] VITALS: PULSE 58; RESP 18; O2SAT 94
[2024-10-11 21:00] VITALS: BP 129/91; PULSE 58; RESP 18; TEMP 98.4; O2SAT 94
[2024-10-12 01:00] VITALS: BP 139/82; PULSE 72; RESP 18; TEMP 97.7; O2SAT 98
[2024-10-12 05:00] VITALS: BP 126/77; PULSE 67; RESP 18; TEMP 97.9; O2SAT 98
[2024-10-12 08:42] VITALS: BP 121/82; PULSE 72; RESP 18; TEMP 98.1; O2SAT 97
[2024-10-12 13:00] VITALS: BP 131/89; PULSE 69; RESP 16; TEMP 98.6; O2SAT 95
--- NOTE | 2024-10-12 15:19 | DVHPNRES ---
Progress Note Date Seen: Oct 12, 2024 Resident Creating Document: TRACY LOWRY RESIDENT Medical Necessity Reason Pt with a Central, PICC or Fol: No Subjective Review of Systems Patient is 31 years old male with past medical history of alcoholic hepatitis, chronic alcoholism came with a complaint of abdominal pain. As per patient patient started having abdominal pain 1 day before early in the morning around 3:00 a.m., epigastric pain, sharp, stabbing in nature, 10/10 in severity, radiating to the back, aggravated with movement or deep breathing, relieved with some pain medication. Patient reported drinking alcohol regularly, last alcohol was taken before patient came into the hospital. Patient also endorsed nausea and vomiting couple of times watery content, no blood. Reported he had pancreatitis three-month before. Further discussion patient also reported having motion last 4 5 days couple of times, watery content, no blood. Patient denied any chest pain, shortness of breath, dysuria, acute joint pain or swelling, change in vision. Initial lab workup revealed elevated lipase 442, triglycerides 60, LDL 52, HLD 75, negative for COVID-19 and flu.. UDS positive for fentanyl, cannabinoids. CT -Abdomen revealed- Prominent peripancreatic edema/fat stranding, can be seen with acute pancreatitis. However, no focal fluid collection is seen.Mild wall thickening and periduodenal edema/ fat stranding can be seen with duodenitis. Ultrasonogram revealed-1. Hepatomegaly with findings suggesting steatosis. Negative gallbladder. Past medical history: Acute pancreatitis 3 months ago Past surgical history: none Social history: Patient drinks about 5-10 drinks of 2 oz whiskey every day, is on opioid remission and methadone 85 mg every day, smokes a pack of cigarettes every day with 20 pack year smoking history, occasional marijuana use, denies other illicit drug use. Home medication: Methadone 85 mg q.d. Patient was seen today at the bedside. Cardiovascular- deny acute chest pain or shortness of breath or cough or palpitation Respiratory- denies cough or short of breath or wheezing Gastrointestinal- denies any rectal bleeding, Musculoskeletal-denies acute joint swelling or tenderness or redness Neurological- denies acute dysarthria, dysphagia, change in vision Psychiatry- denies depression or SI or HI Skin- denies acute rash or purpura patient was seen today for clinical evaluation. Patient is hemodynamically stable, pain has improved a lot, patient is waiting to be transferred to [facility] once a bed is available. Later on patient change his mind and wants to go home on discharge. PATIENT IS VERY ADAMANT ABOUT GOING TO HOME. GO TO [facility]. Patient has a right to choose. Objective vital signs Vital Sign Date Time Temp Pulse Resp B/P (MAP) Pulse Ox O2 Delivery O2 Flow Rate FiO2 10/12/24 13:00 98.6 69 16 131/89 (103) 95 98.6 10/12/24 08:00 Room Air* 0 21 Total Intake and Output 10/11/24 10/11/24 10/12/24 15:00 23:00 07:00 Intake Total 1000 ml 1550 ml 1650 ml Output Total 900 ml 900 ml Balance 1000 ml 650 ml 750 ml medications Current Medications Medications Dose Ordered Sig/Prakash Route Start Time Stop Time Status Last Admin Dose Admin Morphine Sulfate 2 mg Q4HPRN PRN IV 10/08/24 21:30 10/12/24 12:56 2 MG Ondansetron HCl 4 mg Q4HPRN PRN IV 10/08/24 21:30 Lorazepam 1 mg Q5MINP PRN IV 10/08/24 21:30 Lorazepam 1 mg Q4HP PRN IV 10/08/24 21:30 Lactated Ringer's 1,000 ml @ 150 mls/hr Q6H40M IV 10/09/24 07:00 10/12/24 10:29 150 MLS/HR Patient Own Medication 85 DAILY PO 10/10/24 10:00 10/12/24 10:05 85 Pantoprazole Sodium 40 mg BID IV 10/09/24 09:00 10/12/24 09:41 40 MG Folic Acid 1 mg DAILY PO 10/11/24 10:00 10/12/24 09:41 1 MG Multivitamins 1 tab DAILY PO 10/11/24 10:00 10/12/24 09:42 1 TAB Magnesium Oxide 400 mg DAILY PO 10/11/24 10:00 10/12/24 09:42 400 MG Thiamine HCl 100 mg DAILY PO 10/11/24 10:00 10/12/24 09:41 100 MG Examination General examination- awake, alert, oriented, conversant HEENT- PEERLA, no acute nasal discharge Cardiovascular- S1-S2 audible, rate and rhythm regular, no murmur Respiratory- CTAB, no wheeze or rhonchi Gastrointestinal- epigastric tenderness+, bowel sound+. Nondistended Musculoskeletal-no acute joint swelling or tenderness or redness Lower extremity- no leg edema Neurological- cranial nerves intact, no acute dysarthria or dysphagia Psychiatry- denies depression or SI or HI Skin- no acute rash or purpura laboratory and microbiology Laboratory Tests 10/11/24 07:29 10/10/24 06:10 Test 10/11/24 07:29 Range/Units Serum Glucose 94 74-106 mg/dL Problem List/Assessment/Plan Problem List/Assessment/Plan # acute intractable abdominal pain due to acute alcoholic pancreatitis #acute alcoholic pancreatitis # intractable nausea and vomiting due to acute alcoholic pancreatitis and gastroenteritis # acute gastroenteritis # history of alcoholism # history of substance abuse # smoker Continue pantoprazole 40 mg IV b.i.d. Continue continue IV fluid as prescribed Continue pain medication as prescribed Continue other medication as prescribed Monitor vitals Patient's symptom has improved a lot. Patient is hemodynamically stable. Patient is stable to be transferred to [facility]. Goals of care/advance care planning; FULL CODE; discussed with the patient >15 minutes PUD prophylaxis: Pantoprazole DVT prophylaxis: Plan discussed with Jhonatan Atkins, nursing staff, patient Total time spent on patient evaluation, chart review, assessment and plan, discussion discussion >30 minutes Plan discussed with: Patient Plan discussed with: Patient, Other (RN) Date of Service: Oct 12, 2024 Billing Provider: HU LYONS MD Common Visit Codes: [id number] INP/OBS CARE(HIGH) TRACY LOWRY RESIDENT Oct 12, 2024 15:19 HU LYONS MD Oct 12, 2024 23:42
[2024-10-12 17:00] VITALS: BP 139/93; PULSE 69; RESP 20; TEMP 98.1; O2SAT 95
[2024-10-12 17:51] VITALS: BP 110/84; PULSE 78; RESP 18
== END 2024-10-12 16:30 | disposition home or self-care (01) | DRG 391 ==
LOC: ER 09:27 → OVERFLOW 21:22 → EAST 10-09 03:55
PROVIDERS: ADMIT Student in an Organized Health Care Education/Training Program; ATTEND Student in an Organized Health Care Education/Training Program
DX: K52.9 Noninfective gastroenteritis and colitis, unspecified (principal); K85.20 Alcohol induced acute pancreatitis without necrosis or infection; K29.80 Duodenitis without bleeding; F17.210 Nicotine dependence, cigarettes, uncomplicated; Z20.822 Contact with and (suspected) exposure to COVID-19; F10.20 Alcohol dependence, uncomplicated; Y90.9 Presence of alcohol in blood, level not specified; K76.0 Fatty (change of) liver, not elsewhere classified
CPT/HCPCS: 36415; 74176; 76705; 80048; 80053; 80061; 80307; 80320; 81001; 82607; 82746; 83690; 83735; 84443; 85025; 87426; 87804; 99291; G0378; J1885; J2405; J2470